=== PATIENT | female | born 1940 | race Caucasian/White ===

== ENCOUNTER 2020-10-25 15:17 | Emergency (ER) | payer MEDICARE ==
[~2020-10-25] VITALS: Ht 162.6 cm; Wt 92.0 kg
[2020-10-25] MEDS ORDERED: ACETAMINOPHEN 325MG TABLET PO ONE (17:45)
[2020-10-25] MEDS ORDERED: BACITRACIN ZINC OINT UDPKT TOP ONE (18:00)
[2020-10-25] MEDS ORDERED: LIDOCAINE 1%/EPI 1:100,000 10 ML VIAL IJ ONE (18:00)
[2020-10-25] MEDS ORDERED: TETANUS, DIPHTHERIA, PERTUSSIS VAC/PF 0.5ML (>7YR OLD) IM ONE (19:15)
[2020-10-25 21:00] VITALS: BP 145/72
== END 2020-10-25 21:10 | disposition home or self-care (01) ==
LOC: ER 15:56
DX: S01.01XA Laceration without foreign body of scalp, initial encounter (principal); M54.5 Low back pain; I50.9 Heart failure, unspecified; E11.9 Type 2 diabetes mellitus without complications; W01.0XXA Fall on same level from slipping, tripping and stumbling without subsequent striking against object, initial encounter; Y93.89 Activity, other specified; Y92.018 Other place in single-family (private) house as the place of occurrence of the external cause
CPT/HCPCS: 12002; 70450; 72125; 72131; 73560; 99285; J3490